=== PATIENT | male | born 1965 | race Caucasian/White ===

== ENCOUNTER 2016-10-06 22:26 | Emergency (ER) | payer OTHER ==
[~2016-10-06] VITALS: Ht 185.4 cm; Wt 93.8 kg
[2016-10-07] MEDS ORDERED: NAPROSYN500 MG PO (02:49)
[2016-10-07] MEDS ORDERED: NORCO 5/3251 TABLET PO (02:49)
[2016-10-07 03:06] VITALS: BP 159/109
== END 2016-10-07 03:07 | disposition home or self-care (01) ==
LOC: EME 22:26
DX: S43.101A Unspecified dislocation of right acromioclavicular joint, initial encounter (principal); S00.91XA Abrasion of unspecified part of head, initial encounter; V86.59XA Driver of other special all-terrain or other off-road motor vehicle injured in nontraffic accident, initial encounter
CPT/HCPCS: 71020; 73030; 99281; 99284